=== PATIENT | male | born 2000 | race Caucasian/White ===

== ENCOUNTER 2024-07-17 14:57 | Emergency (ER) | payer OTHER, SELFPAY ==
[2024-07-17] MEDS ORDERED: Boostrix 0.5 ML (Tdap) VIAL (>/=7 yrs of age) ONE (15:16)
[2024-07-17] MEDS ORDERED: Cephalexin 250 MG CAP ONE (15:16)
[2024-07-17] MEDS ORDERED: Clindamycin 150 MG CAP ONE (15:21)
== END 2024-07-17 15:32 | disposition home or self-care (01) ==
LOC: BURERS 14:57
DX: S81.831A Puncture wound without foreign body, right lower leg, initial encounter (principal); R55 Syncope and collapse; W45.0XXA Nail entering through skin, initial encounter; Y93.89 Activity, other specified; Z23 Encounter for immunization
CPT/HCPCS: 90471; 90715